=== PATIENT | male | born 2000 | race Caucasian/White ===

== ENCOUNTER 2023-07-17 23:39 | Emergency (ER) | payer SELFPAY | END 2023-07-18 00:24 | LOC: MW.ED 23:39 | DX: Z02.89 Encounter for other administrative examinations (principal) | CPT/HCPCS: 82947; 99281; 99283 ==

== ENCOUNTER 2024-02-26 12:43 | Emergency (ER) | payer SELFPAY ==
[2024-02-26] MEDS: Lidocaine 1% 5 ML VIAL INJECT STA (14:01)
== END 2024-02-26 16:30 | disposition home or self-care (01) ==
LOC: MW.ED 12:43
DX: S67.190A Crushing injury of right index finger, initial encounter (principal); Z75.8 Other problems related to medical facilities and other health care; W23.1XXA Caught, crushed, jammed, or pinched between stationary objects, initial encounter
CPT/HCPCS: 12002; 73130-26-RT; 73130-RT; 99283; J3490

== ENCOUNTER 2024-02-29 13:04 | Emergency (ER) | payer SELFPAY | END 2024-02-29 14:12 | disposition home or self-care (01) | LOC: MW.ED 13:04 | DX: S67.190D Crushing injury of right index finger, subsequent encounter (principal); Z48.00 Encounter for change or removal of nonsurgical wound dressing; Z75.8 Other problems related to medical facilities and other health care; Z79.899 Other long term (current) drug therapy; W22.8XXD Striking against or struck by other objects, subsequent encounter | CPT/HCPCS: 99282 ==

== ENCOUNTER 2024-03-07 11:07 | Emergency (ER) | payer SELFPAY | END 2024-03-07 12:04 | disposition left against medical advice (07) | LOC: MW.ED 11:07 | DX: S61.210D Laceration without foreign body of right index finger without damage to nail, subsequent encounter (principal); X58.XXXD Exposure to other specified factors, subsequent encounter | CPT/HCPCS: 99281 ==